=== PATIENT | male | born 1995 | race Caucasian/White ===

== ENCOUNTER 2023-12-15 14:48 | Outpatient (REF) | payer MEDICAID, SELFPAY ==
[2023-12-15 19:26] LABS: VALPROIC ACID 144.7 ug/mL
[2023-12-15 19:30] LABS: ALT 55 U/L (16-63); AST 22 U/L (15-37); Alkaline Phosphatase 52 U/L (46-116); Anion Gap 10.3 mmol/L (3-11); BUN 10 mg/dL (7-18); Bilirubin, Total 0.3 mg/dL (0.2-1.0); CO2 26.7 mmol/L (21.0-32.0); CREATININE 0.8 mg/dL (0.70-1.30); Calcium 9.4 mg/dL (8.5-10.1); Chloride 98 mmol/L (98-107); Glucose 91 mg/dL (74-106); Potassium 4.3 mmol/L (3.5-5.1); Sodium 135 mmol/L (136-145); TSH (W/Ref FT4) 1.01 uIU/mL (0.36-3.74); Total Protein 7.4 g/dL (6.4-8.2)
[2023-12-15 19:44] LABS: Vitamin D 25 Total 21.4 ng/mL (30-100)
== END 2023-12-15 14:49 | disposition home or self-care (01) ==
LOC: NCHCN 14:48
PROVIDERS: Visit Provider Nurse Practitioner Family
DX: F32.9 Major depressive disorder, single episode, unspecified (principal); E13.9 Other specified diabetes mellitus without complications; E55.9 Vitamin D deficiency, unspecified; E03.9 Hypothyroidism, unspecified
CPT/HCPCS: 80053; 82306; 80164; 84443

== ENCOUNTER 2024-02-18 21:55 | Emergency (ER) | payer MEDICAID, SELFPAY ==
[2024-02-18] VITALS (22 sets, daily range): BP systolic 120–144; BP diastolic 59–90; PULSE 80–111; RESP 11–22; TEMP 36.3; O2SAT 91–99
--- NOTE | 2024-02-18 22:00 | RT.EKG_ITS ---
APPROVED REPORT Exam: Resting ECG Reason for Exam: Patient Location: E HR:87 bpm ECG Measurements Heart Rate [address] 141 P 61 QRSd 88 QRS -11 QT 373 T 43 QTc 442 Conclusion Sinus rhythm...normal P axis, V-rate 60- 99 Atrial premature complexes...SV complexes w/ short R-R intvls Physician: no stemi
--- NOTE | 2024-02-18 22:15 | DI.RAD_ITS ---
Exam(s) XR PORTABLE CHEST AP EXAM: XR PORTABLE CHEST AP CLINICAL HISTORY: central chest pain TECHNIQUE: 2D digital imaging was performed of the chest. One image was obtained. An AP view was ob tained. COMPARISON: No exams were available for comparison FINDINGS: MEDIASTINUM: Normal. HEART: Normal. PULMONARY VASCULATURE: Normal. LUNGS: Clear. PLEURAL SPACE: No pleural effusion or pneumothorax. BONE:Within normal limits for the patient's age. OTHER FINDINGS:Normal. IMPRESSION: No acute pulmonary findings. DATA REPOSITORY: RADIATION DOSE DELIVERED:
[2024-02-18 22:32] LABS: Abs Immature Grans 0.02 10^3/uL (0.0-0.06); Absolute Basophil Count 0.02 10^3/uL (0.0-0.2); Absolute Eosinophil Count 0.11 10^3/uL (0.0-0.7); Absolute Lymphocyte Count 2.25 10^3/uL (1.2-3.4); Absolute Monocyte Count 0.49 10^3/uL (0.1-0.8); Basophils % 0.4 %; Eosinophils % 2.2 %; HCT 40.1 % (40.0-50.0); HGB 13.7 g/dL (13.5-17.5); Immature Grans % 0.4 %; Lymphocytes % 44.2 %; MCHC 34.2 % (32.0-36.0); MCV 88 fL (80-95); MPV 9.2 fL (8.0-11.0); Monocytes % 9.6 %; Neutrophils % 43.2 %; Platelet Count 201 10^3/uL (130-400); RBC 4.57 10^6/uL (4.36-5.78); RDW 12.1 % (11.8-14.1); RDW-SD 38.7 fL; WBC 5.09 10^3/uL (4.4-10.8)
[2024-02-18] MEDS: Acetaminophen 500 MG TAB PO (22:43)
[2024-02-18] MEDS: Ketorolac 15 MG/ML VIAL IVP (22:44)
--- NOTE | 2024-02-18 22:49 | W.ED.GENAD ---
Discharge Plan Disposition Patient Disposition: Home Condition: Good Discharge Details Clinical Impression: Chest discomfort Primary Care Provider: Magda To ED Provider: Wan Simeon Home Meds and New Rx's Prescriptions: No Action acetaminophen 500 mg tablet 500 mg PO Q6H PRN diphenhydramine HCl [Benadryl] 25 mg capsule 25 mg PO TID PRN bisacodyl 10 mg suppository 10 mg DE DAILY PRN Allergy Relief (cetirizine) 10 mg capsule 10 mg PO DAILY PRN folic acid 1 mg tablet 1 mg PO DAILY ketoconazole 2 % cream 1 applic topical DAILY levothyroxine 112 mcg capsule 112 mcg PO DAILY metformin 500 mg tablet 500 mg PO BID magnesium hydroxide [Milk of Magnesia] 400 mg/5 mL suspension 30 ml PO DAILY PRN risperidone [Risperdal] 2 mg tablet 2 mg PO BID risperidone [Risperdal] 3 mg tablet 3 mg PO BID acetaminophen [Tylenol Extra Strength] 500 mg tablet 500 mg PO Q6H PRN cholecalciferol (vitamin D3) 25 mcg (1,000 unit) capsule 25 mcg PO DAILY olanzapine [Zyprexa] 10 mg tablet 30 mg PO QHS Rx Instructions: take three (3) tablets at bedtime orally divalproex 500 mg tablet,delayed release (DR/EC) 1,000 mg PO BID prazosin 1 mg capsule 1 mg PO QHS Taltz Autoinjector 80 mg/mL auto-injector 80 mg subcut Q4W cholecalciferol (vitamin D3) 10 mcg (400 unit) capsule 50,000 unit PO MONTHLY ketoconazole 2 % cream 1 applic topical DAILY Qty: 120 6RF Rx Instructions: Apply to toenails once daily Discharge Instructions Instructions: Chest Pain, Adult ED Additional Instructions: At this time your workup shows no evidence of Pap lung, pneumonia, tumor, mass, blood clot or heart attack. There may be a muscle spasm that could be causing your pain or mild reflux. Please cut down on smoking, avoid spicy foods, and take Tylenol and Motrin as needed for pain. If you notice any worsening of your symptoms, or any new symptoms such as vomiting, diarrhea, fever, chills, shortness of breath, chest pain, numbness, weakness, or fainting , please return immediately to the emergency department for reevaluation. Please follow up with your primary care provider as soon as possible for reassessment and reevaluation. As always, it was a pleasure participating in your medical care today. Referrals: Magda To [Primary Care Provider] - [facility] General Date/Time Provider Initiated Documentation: 02/18/24 22:00. 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 Patient states that at 1130 he had a headache that eventually went away at that time, and then as soon as that went away he developed a mild chest pain it is central chest which she describes as a twisting stabbing discomfort. There is a mild pleuritic component, no postural component. It is not changed by sitting up or laying down. He does smoke tobacco and vape. He denies any cocaine use. He denies any recent long trips surgeries or procedures. No history of cardiac disease. No trauma. No other complaints at this time. He denies any exertional component. Symptoms not relieved by rest. Symptoms occurred while he was resting. Related Data Home Medications ?Medication ?Instructions ?Recorded ?Confirmed acetaminophen 500 mg tablet 500 mg PO Q6H PRN 01/01/24 02/18/24 acetaminophen 500 mg tablet 500 mg PO Q6H PRN 01/01/24 02/18/24 (Tylenol Extra Strength) bisacodyl 10 mg rectal suppository 10 mg DE DAILY PRN 01/01/24 02/18/24 cetirizine 10 mg capsule (Allergy 10 mg PO DAILY PRN 01/01/24 02/18/24 Relief (cetirizine)) cholecalciferol (vitamin D3) 25 25 mcg PO DAILY 01/01/24 02/18/24 mcg (1,000 unit) capsule diphenhydramine HCl 25 mg capsule 25 mg PO TID PRN 01/01/24 02/18/24 (Benadryl) folic acid 1 mg tablet 1 mg PO DAILY 01/01/24 02/18/24 ketoconazole 2 % topical cream 1 applic topical DAILY 01/01/24 02/03/24 levothyroxine 112 mcg capsule 112 mcg PO DAILY 01/01/24 02/18/24 magnesium hydroxide 400 mg/5 mL 30 ml PO DAILY PRN 01/01/24 02/18/24 oral suspension (Milk of Magnesia) metformin 500 mg tablet 500 mg PO BID 01/01/24 02/18/24 risperidone 2 mg tablet (Risperdal) 2 mg PO BID 01/01/24 02/18/24 risperidone 3 mg tablet (Risperdal) 3 mg PO BID 01/01/24 02/18/24 cholecalciferol (vitamin D3) 10 50,000 unit PO MONTHLY 02/03/24 02/18/24 mcg (400 unit) capsule divalproex 500 mg tablet,delayed 1,000 mg PO BID 02/03/24 02/18/24 release ixekizumab 80 mg/mL subcutaneous 80 mg subcut Q4W 02/03/24 02/18/24 auto-injector ([employer]tz Autoinjector) ketoconazole 2 % topical cream 1 applic topical DAILY #120 grams 02/03/24 02/18/24 olanzapine 10 mg tablet (Zyprexa) 30 mg PO QHS 02/03/24 02/18/24 prazosin 1 mg capsule 1 mg PO QHS 02/03/24 02/18/24 Previous Rx's ?Medication ?Instructions ?Recorded ketoconazole 2 % topical cream 1 applic topical DAILY #120 grams 02/03/24 Allergies Allergy/AdvReac Type Severity Reaction Status Date / Time adhesive tape Allergy Unknown Unknown Verified 02/03/24 10:31 amoxicillin (From Augmentin) Allergy Unknown Unknown Verified 02/03/24 10:31 clavulanic acid (From Allergy Unknown Unknown Verified 02/03/24 10:31 Augmentin) hydrocodone Allergy Unknown Unknown Verified 02/03/24 10:31 Sulfa (Sulfonamide Allergy Unknown Unknown Verified 02/03/24 10:31 Antibiotics) General Stated Complaint: Chest Pain LYDIA: 3 Review of Systems All systems reviewed & are unremarkable except as noted in HPI and below Exam Narrative Exam Narrative: 1.Const: Well-nourished, Well-developed, appearing stated age 2.Eyes: PERRL, no conjunctival injection, and symmetrical lids. 3.ENT: Atraumatic external nose and ears. Moist MM. Neck: Symmetric, trachea midline, No thyromegaly. 4.CVS: +S1/S2, No murmurs or gallops. Peripheral pulses 2+ and equal in all extremities. Brisk capillary refill in all extremities. 5.RESP: Unlabored respiratory effort. Clear to auscultation bilaterally. No wheezes rales or rhonchi 6.GI: Soft, Nontender/Nondistended, No hepatosplenomegaly. No guarding or rebound. 7.MSK: Normocephalic/Atraumatic, Extremities w/o deformity or ttp No cyanosis or clubbing, Normal movement of all extremities 8.Skin: Warm, Dry. No rashes or lesions. 9.Neuro: behavioral modification assistant II-XII grossly intact. Sensation grossly intact, no focal neurologic deficits. 10.Psych: (AAO) x3. Appropriate mood and affect Course Vital Signs Vital signs: Vital Signs Temperature 36.3 C L 02/18/24 21:58 Pulse 111 H 02/18/24 21:58 Respiratory Rate 18 02/18/24 21:58 Pulse Oximetry 95 02/18/24 21:58 Temperature 36.3 C L 02/18/24 21:58 Temperature Source Skin 02/18/24 21:58 Pulse 111 H 02/18/24 21:58 Respiratory Rate 18 02/18/24 22:02 Respiratory Effort Normal 02/18/24 22:02 Respiratory Depth Normal 02/18/24 22:02 Respiratory Pattern Normal 02/18/24 22:02 Blood Pressure Position Sitting 02/18/24 21:58 Pulse Oximetry 95 02/18/24 21:58 Oxygen Delivery Method Room Air 02/18/24 21:58 Oxygen Flow Rate 0 02/18/24 21:58 Lab/Test Results Lab/Test Results: Laboratory Tests Range/Units 02/18/24 22:18 WBC (4.4-10.8) 10^3/uL 5.09 RBC (4.36-5.78) 10^6/uL 4.57 Hgb (13.5-17.5) g/dL 13.7 Hct (40.0-50.0) % 40.1 MCV (80-95) fL 88 MCH (27.0-33.0) pg 30.0 MCHC (32.0-36.0) % 34.2 RDW (11.8-14.1) % 12.1 Plt Count (130-400) 10^3/uL 201 MPV (8.0-11.0) fL 9.2 Immature Gran % % 0.4 Neutrophils % % 43.2 Lymphocytes % % 44.2 Monocytes % % 9.6 Eosinophils % % 2.2 Basophils % % 0.4 Nucleated RBC % (0.0-0.3) % 0.0 Absolute Neutrophils (1.2-6.7) 10^3/uL 2.20 Absolute Lymphocytes (1.2-3.4) 10^3/uL 2.25 Absolute Monocytes (0.1-0.8) 10^3/uL 0.49 Absolute Eosinophils (0.0-0.7) 10^3/uL 0.11 Absolute Basophils (0.0-0.2) 10^3/uL 0.02 Medical Decision Making This is a very pleasant 28-year-old male with a past medical history of chronic suicidal behavior for which she is regularly watched on every 5 to 15-minute intervals at his group home, who also has a 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 Patient states that at 1130 he had a headache that eventually went away at that time, and then as soon as that went away he developed a mild chest pain it is central chest which she describes as a twisting stabbing discomfort. There is a mild pleuritic component, no postural component. It is not changed by sitting up or laying down. He does smoke tobacco and vape. He denies any cocaine use. He denies any recent long trips surgeries or procedures. No history of cardiac disease. No trauma. No other complaints at this time. He denies any exertional component. Symptoms not relieved by rest. Symptoms occurred while he was resting. Exam demonstrates well-appearing male, no reproducible chest wall tenderness, no signs of trauma. No calf tenderness, radial pulses equal bilaterally. Differential is concerning for reflux, musculoskeletal etiology, and much less likely cardiac etiology. EKG benign. No signs of STEMI. He is low risk on the heart score. Will monitor closely evaluate for concerning etiologies and reassess. We will order a D-dimer out of low likelihood concern for PE. 1:11 AM Patient remains notably hemodynamically stable. Laboratory workup demonstrates normal white count, normal D-dimer, normal initial and repeat troponin, normal electrolytes, normal renal function, lipase normal. Chest x-ray negative for acute process. Symptoms inconsistent with PE, dissection, ACS, pneumothorax, pneumonia, tumor or mass. Symptoms inconsistent with Boerhaave's or Magali-Still tear. No other abnormalities on exam to suggest acute life-threatening etiology. Symptoms are likely secondary to mild musculoskeletal strain, or potential nonemergent etiology. Patient stable for discharge. No other concerning red flags based on current clinical assessment. Patient will be discharged home with his care provider who is at bedside at all times. Discussed red flags for which to return. I have extensively reviewed the treatment plan and discharge instructions with the patient. I have addressed all patient concerns at this time. The patient was made aware of what symptoms to monitor for that would warrant a return to the emergency department. Discussed the plan with the patient, they demonstrate verbal understanding and agreement with our assessment and plan at this time. The documentation in this chart was dictated using [employer] dictation software. Please excuse any dictation errors. FINDINGS: Lungs: No consolidation. Pleural spaces: No pleural effusion. No pneumothorax. Heart/Mediastinum: No cardiomegaly. Bones/joints: No acute fracture. IMPRESSION: Negative portable chest. Thank you for allowing us to participate in the care of your patient. 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 (Acute) Multiple joint pain (Acute) Skin tag (Acute) Plaque psoriasis (Acute) Atopic dermatitis (Acute) Migraine (Chronic) Insomnia (Acute) Adjustment disorder with mixed anxiety and depressed mood (Acute) Nicotine dependence (Acute) Major depression, single episode (Acute) Vitamin D deficiency (Acute) Diabetes mellitus (Chronic) Hypothyroidism (Chronic) Onychomycosis (Acute) Medical History TBI (traumatic brain injury) Unexplained weight loss Social History Smoking/Tobacco Use Status: Current every day Tobacco Type: cigarettes Smoking risk assessment performed?: Yes Alcohol Intake: never Drug use: Never
[2024-02-18 22:51] LABS: INR 1.1 (0.9-1.1); PTT Activated 28.2 sec (23.6-32.8); Prothrombin Time 10.9 sec (9.1-11.1)
[2024-02-18] MEDS: Nicotine 2 MG LOZG SUC (22:55)
[2024-02-18 22:57] LABS: ALT 33 U/L (16-63); AST 14 U/L (15-37); Albumin 3.7 g/dL (3.4-5.0); Alkaline Phosphatase 54 U/L (46-116); Anion Gap 8.8 mmol/L (3-11); BUN 10 mg/dL (7-18); Bilirubin, Total 0.37 mg/dL (0.2-1.0); CO2 27.2 mmol/L (21.0-32.0); CREATININE 0.7 mg/dL (0.70-1.30); Calcium 9.1 mg/dL (8.5-10.1); Chloride 97 mmol/L (98-107); Estimated GFR 127.12 (mL/min/1.73m2); Glucose 99 mg/dL (74-106); Lipase 57 U/L (16-77); Potassium 3.8 mmol/L (3.5-5.1); Sodium 133 mmol/L (136-145); Total Protein 7.1 g/dL (6.4-8.2); Troponin I < 50 ng/L (< or =60)
[2024-02-18 23:04] LABS: D-Dimer 325 ng/mlFEU (<500)
--- NOTE | 2024-02-18 23:21 | DI.VRAD_ITS ---
PROCEDURE INFORMATION: Exam: XR Chest Exam date and time: 02/18/2024 22:32 Age: 28 years old Clinical indication: Sternal or substernal pain; Additional info: Central chest pain TECHNIQUE: Imaging protocol: Radiologic exam of the chest. Views: 1 view. COMPARISON: No relevant prior studies available. FINDINGS: Lungs: No consolidation. Pleural spaces: No pleural effusion. No pneumothorax. Heart/Mediastinum: No cardiomegaly. Bones/joints: No acute fracture. IMPRESSION: Negative portable chest. Dictated and Authenticated by: Donna Schaefer MD. Ordering:JOSE CAROLS Blas MD
[2024-02-19] VITALS (10 sets, daily range): BP systolic 102–132; BP diastolic 66–88; PULSE 75–91; RESP 10–17; O2SAT 94–97
[2024-02-19 00:58] LABS: Troponin I < 50 ng/L (< or =60)
[2024-02-19] MEDS: Lidocaine 5% Patch 1 PATCH TP (01:13)
== END 2024-02-19 01:13 | disposition home or self-care (01) ==
PROVIDERS: Emergency Provider Student in an Organized Health Care Education/Training Program; PCP Nurse Practitioner Family
DX: R07.89 Other chest pain (principal); F17.200 Nicotine dependence, unspecified, uncomplicated
CPT/HCPCS: 80053; 83690; 93005; 96374; 99284; 71045; 84484; 85025; 85379; 85610; 85730; 93010; 99283; J1885

== ENCOUNTER 2024-10-22 23:58 | Emergency (ER) | payer MEDICAID, SELFPAY ==
[2024-10-23] VITALS: BP 132/89; PULSE 101; RESP 18; TEMP 36; O2SAT 99
--- NOTE | 2024-10-23 00:23 | W.ED.GENAD ---
Discharge Plan Disposition Patient Disposition: Home Condition: Good Discharge Details Clinical Impression: Suicidal ideation, Homicidal ideation Primary Care Provider: Magda To ED Provider: Jennifer Sheehan Home Meds and New Rx's Prescriptions: Continued diphenhydramine HCl [Benadryl] 25 mg capsule 25 mg PO TID PRN bisacodyl 10 mg suppository [address] DAILY PRN Allergy Relief (cetirizine) 10 mg capsule 10 mg PO DAILY PRN folic acid 1 mg tablet 1 mg PO DAILY levothyroxine 112 mcg capsule 112 mcg PO DAILY metformin 500 mg tablet 500 mg PO BID magnesium hydroxide [Milk of Magnesia] 400 mg/5 mL suspension 30 ml PO DAILY PRN risperidone [Risperdal] 2 mg tablet 2 mg PO BID risperidone [Risperdal] 3 mg tablet 3 mg PO BID acetaminophen [Tylenol Extra Strength] 500 mg tablet 500 mg PO Q6H PRN cholecalciferol (vitamin D3) 25 mcg (1,000 unit) capsule 25 mcg PO DAILY Taltz Autoinjector 80 mg/mL auto-injector 80 mg subcut Q4W ketoconazole 2 % cream 1 applic topical DAILY Qty: 120 6RF Rx Instructions: Apply to toenails once daily divalproex 500 mg tablet,delayed release (DR/EC) 1,500 mg PO HS cholecalciferol (vitamin D3) 10 mcg (400 unit) capsule 1,000 unit PO MONTHLY clonazepam [Klonopin] 1 mg tablet 1 mg PO DAILY PRN cbd drops 0.5 ml PO DAILY fleets enema [address] PRN Rx Instructions: 1 rectally; calcium carbonate [Antacid (calcium carbonate)] 200 mg calcium (500 mg) tablet,chewable 400 mg PO Q4H PRN Discharge Instructions Instructions: Suicide Prevention, Depression, Adult ED Additional Instructions: Follow up with your primary care doctor within the next 72 hours on your visit here. Return to the emergency department for new or worsening symptoms. HPI General Mode of arrival: EMS. Date/Time Provider Initiated Documentation: 10/23/24 00:13. Limitations to Documentation: no limitations. Information obtained by: patient and EMS. HPI Narrative: 28yo M with hx depression, anxiety, developmental delay, presenting via EMS for SI and HI. Reports that he is feeling like he wants to kill himself and also to kill other people. Denies any specific targets. Denies any plan for suicide Haven't decided or homicide I don't know. Thinks he may have tried to kill himself years ago but does not remember what method he used. Denies any specific provoking factors or recent stressors. Denies any physical complaints. Otherwise in his usual state of health. Related Data Home Medications ?Medication ?Instructions ?Recorded ?Confirmed acetaminophen 500 mg tablet 500 mg PO Q6H PRN 01/01/24 10/22/24 (Tylenol Extra Strength) bisacodyl 10 mg rectal suppository [address] DAILY PRN 01/01/24 10/22/24 cetirizine 10 mg capsule (Allergy 10 mg PO DAILY PRN 01/01/24 10/23/24 Relief (cetirizine)) cholecalciferol (vitamin D3) 25 25 mcg PO DAILY 01/01/24 10/23/24 mcg (1,000 unit) capsule diphenhydramine HCl 25 mg capsule 25 mg PO TID PRN 01/01/24 10/23/24 (Benadryl) folic acid 1 mg tablet 1 mg PO DAILY 01/01/24 10/23/24 levothyroxine 112 mcg capsule 112 mcg PO DAILY 01/01/24 10/23/24 magnesium hydroxide 400 mg/5 mL 30 ml PO DAILY PRN 01/01/24 10/23/24 oral suspension (Milk of Magnesia) metformin 500 mg tablet 500 mg PO BID 01/01/24 10/23/24 risperidone 2 mg tablet (Risperdal) 2 mg PO BID 01/01/24 10/23/24 risperidone 3 mg tablet (Risperdal) 3 mg PO BID 01/01/24 10/23/24 ixekizumab 80 mg/mL subcutaneous 80 mg subcut Q4W 02/03/24 10/23/24 auto-injector ([employer] Autoinjector) ketoconazole 2 % topical cream 1 applic topical DAILY #120 grams 02/03/24 10/23/24 calcium carbonate (Antacid 400 mg PO Q4H PRN 08/03/24 10/22/24 (calcium carbonate)) cbd drops 0.5 ml PO DAILY 08/03/24 10/23/24 cholecalciferol (vitamin D3) 10 1,000 unit PO MONTHLY 08/03/24 10/23/24 mcg (400 unit) capsule clonazepam 1 mg tablet (Klonopin) 1 mg PO DAILY PRN 08/03/24 10/23/24 divalproex 500 mg tablet,delayed 1,500 mg PO HS 08/03/24 10/23/24 release fleets enema [address] PRN 08/03/24 10/23/24 Previous Rx's ?Medication ?Instructions ?Recorded ketoconazole 2 % topical cream 1 applic topical DAILY #120 grams 02/03/24 Allergies Allergy/AdvReac Type Severity Reaction Status Date / Time milk Allergy Intermediate Diarrhea Verified 10/22/24 23:59 adhesive tape Allergy Unknown Unknown Verified 10/22/24 23:59 amoxicillin (From Augmentin) Allergy Unknown Unknown Verified 10/22/24 23:59 clavulanic acid (From Allergy Unknown Unknown Verified 10/22/24 23:59 Augmentin) hydrocodone Allergy Unknown Unknown Verified 10/22/24 23:59 Sulfa (Sulfonamide Allergy Unknown Unknown Verified 10/22/24 23:59 Antibiotics) General Stated Complaint: PsychEval LYDIA: 2 Review of Systems Narrative: see HPI Exam Narrative Exam Narrative: General: Alert, well appearing, well nourished, in no acute distress. Head: Normocephalic, atraumatic Neck: Trachea midline, ?Neck supple. Cardiac: ?RRR, no murmurs appreciated Resp: No respiratory distress. CTAB. Abd: ?Non-distended Extremities: ?No deformities.? Neurologic: GCS 15. ? Moves all extremities freely against gravity Psych: Calm, cooperative.? Well groomed.? Mood bad, affect flat.? Speech with normal volume, rate, rythym and tone. Linear and goal directed.? +SI & +HI, denies any plans or attempts. Does not appear to be responding to internal stimuli. No psychomotor agitation. Course Vital Signs Vital signs: Vital Signs Temperature 36.0 C L 10/23/24 00:00 Pulse 101 H 10/23/24 00:00 Respiratory Rate 18 10/23/24 00:00 Blood Pressure 132/89 10/23/24 00:00 Pulse Oximetry 99 10/23/24 00:00 Temperature 36.0 C L 10/23/24 00:00 Temperature Source Temporal Artery Scan 10/23/24 00:00 Pulse 101 H 10/23/24 00:00 Respiratory Rate 18 10/23/24 00:00 Blood Pressure 132/89 10/23/24 00:00 Blood Pressure Position Sitting 10/23/24 00:00 Pulse Oximetry 99 10/23/24 00:00 Oxygen Delivery Method Room Air 10/23/24 00:00 Oxygen Flow Rate 0 10/23/24 00:00 Pain Level 0 10/23/24 00:00 Medical Decision Making 28yo M with hx depression, anxiety, developmental delay, presenting via EMS for SI and HI without plans. Vital signs reassuring on arrival. Medically cleared via SMART tool. He lives in a nursing home and is closely supervised, has no specific plan or intent for either suicide or homicide and no identified target for homicide. At low risk for self harm or harm to others. Well known to [facility] who was contacted and evaluated patient (see their note for details); feel he is at his baseline and not at imminent risk for harm to self or others. No indication for inpatient treatment at this time. Discharged home in company of caregiver; discharge instructions and return precautions were reviewed with patient and caregiver at bedside who verbalized understanding. All questions were answered. 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) Multiple joint pain (Acute) Skin tag (Acute) Plaque psoriasis (Acute) Atopic dermatitis (Acute) Migraine (Chronic) Insomnia (Acute) Adjustment disorder with mixed anxiety and depressed mood (Acute) Nicotine dependence (Acute) Major depression, single episode (Acute) Vitamin D deficiency (Acute) Diabetes mellitus (Chronic) Hypothyroidism (Chronic) Onychomycosis (Acute) Medical History TBI (traumatic brain injury) Unexplained weight loss Social History Smoking/Tobacco Use Status: Current every day Tobacco Type: cigarettes Smoking risk assessment performed?: Yes Alcohol Intake: never Drug use: Never Substance use type: does not use Housing: apartment
[2024-10-23] MEDS: Nicotine 2 MG LOZG SUC (00:42)
--- NOTE | 2024-10-23 02:33 | PDOC.MHCN_ITS ---
Date of service: 10/23/24 Time of Service: 00:55 Suicide Severity Rate CSSRS Have you wished you were or wished you could go to sleep and not wake up?: Yes Have you actually had any thoughts of killing yourself?: Yes CSSRS2 Have you been thinking about how you might do this?: No Have you had these thoughts and had some intention of acting on them?: Yes Have you started to work out or worked out the details of how to kill yourself? Do you intend to carry out this plan?: No CSSRS3 Have you ever done anything, started to do anything or prepared to do anything to end your life?: Yes CSSRS4 Was this within the past three months?: Yes Screening Score Total Score: 8 Screening: Positive Mental Health Emergency Note Release [facility] release signed:: No Reason for Visit SI and HI In the last 2 weeks has the pt presented for ES prior to today?: No Non Suicidal Self Injury Current: No History: yes, Client unavailable Safety Risk/Harm to Self or Others Current Ideation to Harm Self or Others: Yes to self. Intent: yes, has intent. Plan: no.does not have a plan. Risk: Does risk to harm exist?: No Risk: Low Risk Duty to warn indicated: No Asssessment/Mental Status Appearance: Disheveled Attitude: Friendly and Other (Uncooperative) Behavior: Agitated Speech: Normal Affect: Cogruent with mood Mood: Irritable Thought process: Circumstational and Poverty of content Hallucinations: yes, Visual and Auditory Delusions: No Attention: Unremarkable Perception: Not impaired Orientation: Fully orientated Memory: Intact Insight: Poor Judgement: Poor Neurovegetative Symptoms Sleep: Decrease Appetitie: Decrease Interests: Decrease Energy: Decrease Libido: Not applicable Substance Use: Other (No) Drug Issues: Other (No) Do you use nicotine?: Yes Have you used substances in the last 7 days?: No Additional Issues: Assaultive/Threatening Behavior: No Medical Concerns: No Client engaged in active self harm w/weapon: No Threatening to run away: No Child reported abuse/neglect: No Voluntarily presenting for services: Yes Domestic violence is a concern: No Extreme Psychosis or extreme behavior is present: No Impression The client is a 28 year old biological male who resides at [facility] in [place]. The client presents in blue paper scrubs in his hospital bed displaying poor hygiene. Affect is appears to be congruent with mood. Speech is in normal range. Client is uncooperative; they report their mood as up and down. Thought process appears to be circumstantial with a poverty of content. There are no delusions observed. The client reports having visual and auditory hallucinations. The client states he hears voices in his head and sees the same group of people daily. When asked for further details on the group of people the client is seeing the client states one is trying to kill himself, one is trying to kill another, one is trying to find work, one is trying not to beat the other people and there are many more. Client shows poor insight as they are seeking impatient treatment as they do not like where they are residing. Cognitive assessment reveals orientation to person, place and time. The client reports SI and HI bringing him into [facility] via ambulance. The client reports feeling suicidal everyday but it is worse on the days he focuses on it. The client denied having a plan but when asked on a scale from zero to ten, with zero being I won't do anything to end my life and ten being I will do anything possible to end my life by suicide where they would rate themselves. The client rated himself at a 10 out of 10. The client reports HI with no intent and plan to this clinician. The client denies NSSI, but states he has engaged in NSSI in the past and does not remember how long ago. The client denied to engage in the screening tool questions with this filing writer but did complete the CSSRS and scored a 4/6. The client has no access to means and is staffed 17/02 at [facility]. The client denied to want to complete a safety plan with this filing writer, and was discharged from [facility]. Plan/Disposition Recommended Disposition: Other (No recommended disposition at this time.). Plan: Client refused to engage in safety plan with this clinician and was discharged home. Reports/communication Outcome discussed with: ED/Personnel
== END 2024-10-23 01:37 | disposition home or self-care (01) ==
PROVIDERS: Emergency Provider Student in an Organized Health Care Education/Training Program; PCP Nurse Practitioner Family
DX: R45.850 Homicidal ideations (principal); R45.851 Suicidal ideations; F32.A Depression, unspecified; F41.9 Anxiety disorder, unspecified
CPT/HCPCS: 00123; 99285; 99284

== ENCOUNTER 2024-11-21 16:59 | Emergency (ER) | payer MEDICAID, SELFPAY ==
[2024-11-21 17:01] VITALS: BP 124/78; PULSE 100; RESP 18; TEMP 36.6; O2SAT 98
--- NOTE | 2024-11-21 17:30 | RT.EKG_ITS ---
APPROVED REPORT Exam: Resting ECG Reason for Exam: chest pain Patient Location: E HR:88 bpm ECG Measurements Heart Rate 88 AXIS ND 120 P 50 QRSd 85 QRS -12 QT 372 T 30 QTc 454 Conclusion Sinus rhythm 88 normal axis PAC no stemi
[2024-11-21 18:37] LABS: Abs Immature Grans 0.01 10^3/uL (0.0-0.06); Absolute Basophil Count 0.02 10^3/uL (0.0-0.2); Absolute Eosinophil Count 0.06 10^3/uL (0.0-0.7); Absolute Lymphocyte Count 1.64 10^3/uL (1.2-3.4); Absolute Monocyte Count 0.44 10^3/uL (0.1-0.8); Absolute Neutrophil Count 2.61 10^3/uL (1.2-6.7); Basophils % 0.4 %; Eosinophils % 1.3 %; HCT 45.8 % (40.0-50.0); HGB 15.3 g/dL (13.5-17.5); Immature Grans % 0.2 %; Lymphocytes % 34.3 %; MCH 30.8 pg (27.0-33.0); MCHC 33.4 % (32.0-36.0); MCV 92 fL (80-95); MPV 9.5 fL (8.0-11.0); Monocytes % 9.2 %; Neutrophils % 54.6 %; Platelet Count 209 10^3/uL (130-400); RBC 4.97 10^6/uL (4.36-5.78); RDW 12.5 % (11.8-14.1); RDW-SD 42.1 fL; WBC 4.78 10^3/uL (4.4-10.8)
[2024-11-21 18:46] LABS: ALT 33 U/L (16-63); AST 12 U/L (15-37); Albumin 4.2 g/dL (3.4-5.0); Alkaline Phosphatase 71 U/L (46-116); Anion Gap 9.6 mmol/L (3-11); BUN 13 mg/dL (7-18); Bilirubin, Total 0.3 mg/dL (0.2-1.0); CO2 29.4 mmol/L (21.0-32.0); CREATININE 0.8 mg/dL (0.70-1.30); Calcium 10.5 mg/dL (8.5-10.1); Chloride 102 mmol/L (98-107); Estimated GFR 121.34 (mL/min/1.73m2); Glucose 116 mg/dL (74-106); Potassium 4.2 mmol/L (3.5-5.1); Sodium 141 mmol/L (136-145); Total Protein 8.2 g/dL (6.4-8.2)
--- NOTE | 2024-11-21 18:58 | ED.GENADUL_ITS ---
Discharge Plan Disposition Patient Disposition: Home Condition: Stable Discharge Details Clinical Impression: Suicidal ideation Primary Care Provider: Magda To ED Provider: Chance Garcia Home Meds and New Rx's Prescriptions: No Action diphenhydramine HCl [Benadryl] 25 mg capsule 25 mg PO TID PRN bisacodyl 10 mg suppository 10 mg OH DAILY PRN Allergy Relief (cetirizine) 10 mg capsule 10 mg PO DAILY PRN folic acid 1 mg tablet 1 mg PO DAILY levothyroxine 112 mcg capsule 112 mcg PO DAILY metformin 500 mg tablet 500 mg PO BID magnesium hydroxide [Milk of Magnesia] 400 mg/5 mL suspension 30 ml PO DAILY PRN risperidone [Risperdal] 2 mg tablet 2 mg PO BID risperidone [Risperdal] 3 mg tablet 3 mg PO BID acetaminophen [Tylenol Extra Strength] 500 mg tablet 500 mg PO Q6H PRN cholecalciferol (vitamin D3) 25 mcg (1,000 unit) capsule 25 mcg PO DAILY Taltz Autoinjector 80 mg/mL auto-injector 80 mg subcut Q4W divalproex 500 mg tablet,delayed release (DR/EC) 1,500 mg PO HS cholecalciferol (vitamin D3) 10 mcg (400 unit) capsule 1,000 unit PO MONTHLY clonazepam [Klonopin] 1 mg tablet 1 mg PO DAILY PRN cbd drops 0.5 ml PO DAILY fleets enema 1 dose OH PRN Rx Instructions: 1 rectally; calcium carbonate [Antacid (calcium carbonate)] 200 mg calcium (500 mg) tablet,chewable 400 mg PO Q4H PRN Discharge Instructions Additional Instructions: please continue your home treatment and follow up with your primary team. HPI General Date/Time Provider Initiated Documentation: 11/21/24 17:00 . Limitations to Documentation: no limitations . Information obtained by: patient and family . HPI Narrative: 29-year-old gentleman with past medical history of chromosome micro deletion, adjustment disorder, depression, diabetes presents for evaluation of depressed mood. Patient presents with his life skills person from the place where he lives and works. She reports that yesterday he had some palpitations and chest pain and this caused him to have some anxiety. She states that since that time he has been feeling very down and he did not get them today. He states that he has been having suicidal thoughts, no plan and no attempt at self-harm. He does have prior attempts at self-harm and psychiatric hospitalization. Related Data Home Medications ?Medication ?Instructions ?Recorded ?Confirmed acetaminophen 500 mg tablet 500 mg PO Q6H PRN 01/01/24 11/21/24 (Tylenol Extra Strength) bisacodyl 10 mg rectal suppository 10 mg OH DAILY PRN 01/01/24 11/21/24 cetirizine 10 mg capsule (Allergy 10 mg PO DAILY PRN 01/01/24 11/21/24 Relief (cetirizine)) cholecalciferol (vitamin D3) 25 25 mcg PO DAILY 01/01/24 11/21/24 mcg (1,000 unit) capsule diphenhydramine HCl 25 mg capsule 25 mg PO TID PRN 01/01/24 11/21/24 (Benadryl) folic acid 1 mg tablet 1 mg PO DAILY 01/01/24 11/21/24 levothyroxine 112 mcg capsule 112 mcg PO DAILY 01/01/24 11/21/24 magnesium hydroxide 400 mg/5 mL 30 ml PO DAILY PRN 01/01/24 11/21/24 oral suspension (Milk of Magnesia) metformin 500 mg tablet 500 mg PO BID 01/01/24 11/21/24 risperidone 2 mg tablet (Risperdal) 2 mg PO BID 01/01/24 11/21/24 risperidone 3 mg tablet (Risperdal) 3 mg PO BID 01/01/24 11/21/24 ixekizumab 80 mg/mL subcutaneous 80 mg subcut Q4W 02/03/24 11/21/24 auto-injector (Taltz Autoinjector) calcium carbonate (Antacid 400 mg PO Q4H PRN 08/03/24 11/21/24 (calcium carbonate)) cbd drops 0.5 ml PO DAILY 08/03/24 11/21/24 cholecalciferol (vitamin D3) 10 1,000 unit PO MONTHLY 08/03/24 11/21/24 mcg (400 unit) capsule clonazepam 1 mg tablet (Klonopin) 1 mg PO DAILY PRN 08/03/24 11/21/24 divalproex 500 mg tablet,delayed 1,500 mg PO HS 08/03/24 11/21/24 release fleets enema 1 dose OH PRN 08/03/24 11/21/24 Allergies Allergy/AdvReac Type Severity Reaction Status Date / Time milk Allergy Intermediate Diarrhea Verified 11/21/24 17:06 adhesive tape Allergy Unknown Unknown Verified 11/21/24 17:06 amoxicillin (From Augmentin) Allergy Unknown Unknown Verified 11/21/24 17:06 clavulanic acid (From Allergy Unknown Unknown Verified 11/21/24 17:06 Augmentin) hydrocodone Allergy Unknown Unknown Verified 11/21/24 17:06 Sulfa (Sulfonamide Allergy Unknown Unknown Verified 11/21/24 17:06 Antibiotics) General Stated Complaint: PsychEval LYDIA: 2 Exam Narrative Exam Narrative: Review of Systems: All systems reviewed & are unremarkable except as noted in HPI and below Well-developed, no acute distress NCAT RRR Unlabored respiratory effort Appropriate mood and affect Course Vital Signs Vital signs: Vital Signs Temperature 36.6 C 11/21/24 17:01 Pulse 100 H 11/21/24 17:01 Respiratory Rate 18 11/21/24 17:01 Blood Pressure 124/78 11/21/24 17:01 Pulse Oximetry 98 11/21/24 17:01 Temperature 36.6 C 11/21/24 17:01 Temperature Source Tympanic 11/21/24 17:01 Pulse 100 H 11/21/24 17:01 Respiratory Rate 18 11/21/24 17:01 Blood Pressure 124/78 11/21/24 17:01 Pulse Oximetry 98 11/21/24 17:01 Oxygen Delivery Method Room Air 11/21/24 17:01 Oxygen Flow Rate 0 11/21/24 17:01 Pain Level 0 11/21/24 17:01 Lab/Test Results Lab/Test Results: Laboratory Tests Range/Units 11/21/24 18:23 WBC (4.4-10.8) 10^3/uL 4.78 RBC (4.36-5.78) 10^6/uL 4.97 Hgb (13.5-17.5) g/dL 15.3 Hct (40.0-50.0) % 45.8 MCV (80-95) fL 92 MCH (27.0-33.0) pg 30.8 MCHC (32.0-36.0) % 33.4 RDW (11.8-14.1) % 12.5 Plt Count (130-400) 10^3/uL 209 MPV (8.0-11.0) fL 9.5 Immature Gran % % 0.2 Neutrophils % % 54.6 Lymphocytes % % 34.3 Monocytes % % 9.2 Eosinophils % % 1.3 Basophils % % 0.4 Nucleated RBC % (0.0-0.3) % 0.0 Absolute Neutrophils (1.2-6.7) 10^3/uL 2.61 Absolute Lymphocytes (1.2-3.4) 10^3/uL 1.64 Absolute Monocytes (0.1-0.8) 10^3/uL 0.44 Absolute Eosinophils (0.0-0.7) 10^3/uL 0.06 Absolute Basophils (0.0-0.2) 10^3/uL 0.02 Sodium (136-145) mmol/L 141 Potassium (3.5-5.1) mmol/L 4.2 Chloride (98-107) mmol/L 102 Carbon Dioxide (21.0-32.0) mmol/L 29.4 Anion Gap (3-11) mmol/L 9.6 BUN (7-18) mg/dL 13 Creatinine (0.70-1.30) mg/dL 0.8 Est GFR (CKD-EPI 2020) (mL/min/1.73m2) 121.34 Glucose (74-106) mg/dL 116 H Calcium (8.5-10.1) mg/dL 10.5 H Total Bilirubin (0.2-1.0) mg/dL 0.3 AST (15-37) U/L 12 L ALT (16-63) U/L 33 Alkaline Phosphatase (46-116) U/L 71 Total Protein (6.4-8.2) g/dL 8.2 Albumin (3.4-5.0) g/dL 4.2 Medical Decision Making Emergent evaluation of suicidal ideation. Patient has history of mood disorder and hospitalization. Has not taken anything or done anything in an attempt of self-harm. Caregiver states that they just need to get his medicines changed and regulated. He reports an on episode of chest pain yesterday but this was brief and self-limited. EKG today independently interpreted: Sinus 88 PAC normal axis no STEMI. Will get blood work for medical clearance, initiate psychiatric monitoring and suicide precautions and patient will be evaluated by mental health services. Lab work unremarkable. Patient evaluated by mental health services, they are very familiar with this patient. Currently he lives in a facility in which she has 24-hour supervision, no access to means for self-harm. His caregiver who is still here feels comfortable taking him home at this point there is no indication for further hospitalization and patient is discharged. 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) Multiple joint pain (Acute) Skin tag (Acute) Plaque psoriasis (Acute) Atopic dermatitis (Acute) Migraine (Chronic) Insomnia (Acute) Adjustment disorder with mixed anxiety and depressed mood (Acute) Nicotine dependence (Acute) Major depression, single episode (Acute) Vitamin D deficiency (Acute) Diabetes mellitus (Chronic) Hypothyroidism (Chronic) Onychomycosis (Acute) Medical History TBI (traumatic brain injury) Unexplained weight loss Social History Smoking/Tobacco Use Status: Current every day Smoking risk assessment performed?: Yes Alcohol Intake: never Drug use: Never Substance use type: does not use Housing: apartment
[2024-11-21 19:07] LABS: VALPROIC ACID 67.2 ug/mL
[2024-11-21 19:13] LABS: *AMPHETAMINES SCREEN URINE Negative (Negative); *BARBITURATES SCREEN URINE Negative (Negative); *BENZODIAZEPINES SCREEN URINE Negative (Negative); Cannabinoids THC Negative (Negative); Cocaine Screen,Urine Negative (Negative); METHADONE URINE SCREEN Negative (Negative); OPIATES URINE SCREEN Negative (Negative)
[2024-11-21 19:17] LABS: Tricyclic Antidepressants Negative (Negative)
--- NOTE | 2024-11-21 22:34 | PDOC.MHCN ---
Date of service: 11/21/24 Time of Service: 20:35 PHQ-9 Over the last 2 weeks, how often have you been bothered by any of the following problems? 1. Little interest or pleasure in doing things: nearly every day 2. Feeling down, depressed, or hopeless: nearly every day 3. Trouble falling or staying asleep, or sleeping too much: more than half the days 4. Feeling tired or having little energy: nearly every day 5. Poor appetite or overeating: more than half the days 6. Feeling bad about yourself - or that you are a failure or have let yourself and your family down: nearly every day 7. Trouble concentrating on things, such as reading the newspaper or watching television: nearly every day 8. Moving or speaking so slowly that other people could have noticed? - Or the opposite - being so fidgety or restless that you have been moving around a lot more than usual: several days 9. Thoughts that you would be better off or of hurting yourself in some way: more than half the days Total score: 22 If you checked off any problems, how difficult have these problems made it for you to do your work, take care of things at home, or get along with other people?: extremely difficult Source: Developed by Drs. Triston Titus, Haydee Reyes, Junior Brooke and colleagues, with an educational ira from [employer]. Suicide Severity Rate CSSRS Have you wished you were or wished you could go to sleep and not wake up?: Yes Have you actually had any thoughts of killing yourself?: Yes CSSRS2 Have you been thinking about how you might do this?: Yes Have you had these thoughts and had some intention of acting on them?: Yes Have you started to work out or worked out the details of how to kill yourself? Do you intend to carry out this plan?: No CSSRS3 Have you ever done anything, started to do anything or prepared to do anything to end your life?: Yes CSSRS4 Was this within the past three months?: No Screening Score Total Score: 6 Screening: Positive Mental Health Emergency Note Release [facility] release signed:: Yes Reason for Visit Client presented to the [facility] with suicidal ideations. In the last 2 weeks has the pt presented for ES prior to today?: No Client Information Well Housed: Yes Non Suicidal Self Injury Current: No History: yes, The client reports engaging in NSSI in the past by cutting. Safety Risk/Harm to Self or Others Current Ideation to Harm Self or Others: Yes to self. Intent: yes, has intent. Plan: no.does not have a plan. History of suicide attempt: yes,history of suicide attempt reported. Details of previous suicide attempt: The client reports multiple attempts on life back in 2019. Risk: Does risk to harm exist?: No Risk: Low Risk Duty to warn indicated: No Asssessment/Mental Status Appearance: Unremarkable Attitude: Demanding Behavior: Agitated Speech: Normal Affect: Cogruent with mood Mood: Irritable and Other (bad) Thought process: Circumstational and Poverty of content Hallucinations: yes, (The client did not give details on hallucinations.) Visual and Auditory Delusions: No Attention: Unremarkable Perception: Not impaired Orientation: Fully orientated Memory: Intact Insight: Poor Judgement: Poor Neurovegetative Symptoms Sleep: Decrease Appetitie: Decrease Interests: Decrease Energy: Decrease Libido: Not applicable Substance Use: Do you use nicotine?: Yes Additional Issues: Assaultive/Threatening Behavior: No Medical Concerns: No Client engaged in active self harm w/weapon: No Threatening to run away: No Child reported abuse/neglect: No Voluntarily presenting for services: Yes Domestic violence is a concern: No Extreme Psychosis or extreme behavior is present: No Impression The client is a 29 year old single biological male who resides at [facility] in [place]. The client presents in blue paper scrubs in Zone [address] of [facility]. Affect is appears to be congruent with mood. Speech is in normal range. Client is uncooperative and demanding; they report their mood as bad. Thought process appears to be circumstantial with a poverty of content. There are no delusions observed. The client reports having visual and auditory hallucinations, but does not give details regarding the hallucinations. Cognitive assessment reveals orientation to person, place and time. The client reports presenting to the [facility] ED with slight suicidal ideation. The client denied having a plan but when asked on a scale from zero to ten, with zero being I won't do anything to end my life and ten being I will do anything possible to end my life by suicide where they would rate themselves. The client rated himself at a 10 out of 10. The client denies HI to this clinician. The client denies NSSI currently, but states he has engaged in NSSI in the past around [id number]. The client scored a 22/27 on the PHQ-9, and a 5/6 on the CSSRS. The client has no access to means and is staffed 17/02 at [facility]. The client denied to want to complete a safety plan with this appeals writer, and was discharged from [facility]. Plan/Disposition Recommended Disposition: Other (Discharged home with no follow up.). Plan: The client denied to want to complete a safety plan with this appeals writer, and was discharged from [facility] with no follow up actions. Reports/communication Outcome discussed with: ED/Personnel
== END 2024-11-21 21:23 | disposition home or self-care (01) ==
PROVIDERS: Emergency Provider Emergency Medicine; PCP Nurse Practitioner Family
DX: R45.851 Suicidal ideations (principal); F43.23 Adjustment disorder with mixed anxiety and depressed mood
CPT/HCPCS: 99284 ×2; 00123; 80053; 80307; 93005; 96127; 80164; 85025; 93010

== ENCOUNTER 2025-02-03 23:35 | Emergency (ER) | payer MEDICAID, SELFPAY ==
[2025-02-03 23:14] VITALS: BP 118/88; PULSE 89; RESP 18; TEMP 36.7; O2SAT 98
--- NOTE | 2025-02-03 23:22 | W.ED.GENAD ---
Discharge Plan Disposition Patient Disposition: Home Condition: Good Discharge Details Clinical Impression: Mental health problem, Suicidal thoughts Primary Care Provider: Magda To ED Provider: Triston Delacruz Meds and New Rx's Prescriptions: Continued diphenhydramine HCl [Benadryl] 25 mg capsule 25 mg PO TID PRN bisacodyl 10 mg suppository 10 mg OH DAILY PRN Allergy Relief (cetirizine) 10 mg capsule 10 mg PO DAILY PRN folic acid 1 mg tablet 1 mg PO DAILY levothyroxine 112 mcg capsule 112 mcg PO DAILY metformin 500 mg tablet 500 mg PO BID magnesium hydroxide [Milk of Magnesia] 400 mg/5 mL suspension 30 ml PO DAILY PRN acetaminophen [Tylenol Extra Strength] 500 mg tablet 500 mg PO Q6H PRN cholecalciferol (vitamin D3) 25 mcg (1,000 unit) capsule 25 mcg PO DAILY Taltz Autoinjector 80 mg/mL auto-injector 80 mg subcut Q4W divalproex 500 mg tablet,delayed release (DR/EC) 1,500 mg PO HS cholecalciferol (vitamin D3) 10 mcg (400 unit) capsule 1,000 unit PO MONTHLY clonazepam [Klonopin] 1 mg tablet 1 mg PO DAILY PRN cbd drops 0.5 ml PO DAILY fleets enema 1 dose OH PRN Rx Instructions: 1 rectally; calcium carbonate [Antacid (calcium carbonate)] 200 mg calcium (500 mg) tablet,chewable 400 mg PO Q4H PRN No Action risperidone [Risperdal] 2 mg tablet 2 mg PO BID risperidone [Risperdal] 3 mg tablet 3 mg PO BID Discharge Instructions Additional Instructions: You were seen in the ED and evaluated by mental health ([facility]). You were felt safe for discharge back to [facility] and should continue current medications with close follow up with your outpatient team. Return to ED for significantly worsening depression, self harm intent, other concerns. HPI General Mode of arrival: EMS. Date/Time Provider Initiated Documentation: 02/04/25 00:18. Limitations to Documentation: no limitations. Information obtained by: patient, RN notes reviewed and old records reviewed. HPI Narrative: Patient presents to ED with complaint of suicidal ideation. Patient reports increasing thoughts of self-harm over the last week. Patient is compliant with medications and is followed by therapist. He has not attempted any self-harm or injury but reports increased thoughts of same. He does have prior attempts. He has no physical complaint other than headache which is a chronic intermittent problem. He has no neurologic complaints otherwise. He is a client at [facility]. Related Data Home Medications ?Medication ?Instructions ?Recorded ?Confirmed acetaminophen 500 mg tablet 500 mg PO Q6H PRN 01/01/24 02/03/25 (Tylenol Extra Strength) bisacodyl 10 mg rectal suppository 10 mg OH DAILY PRN 01/01/24 02/03/25 cetirizine 10 mg capsule (Allergy 10 mg PO DAILY PRN 01/01/24 02/03/25 Relief (cetirizine)) cholecalciferol (vitamin D3) 25 25 mcg PO DAILY 01/01/24 02/03/25 mcg (1,000 unit) capsule diphenhydramine HCl 25 mg capsule 25 mg PO TID PRN 01/01/24 02/03/25 (Benadryl) folic acid 1 mg tablet 1 mg PO DAILY 01/01/24 02/03/25 levothyroxine 112 mcg capsule 112 mcg PO DAILY 01/01/24 02/03/25 magnesium hydroxide 400 mg/5 mL 30 ml PO DAILY PRN 01/01/24 02/03/25 oral suspension (Milk of Magnesia) metformin 500 mg tablet 500 mg PO BID 01/01/24 02/03/25 risperidone 2 mg tablet (Risperdal) 2 mg PO BID 01/01/24 11/21/24 risperidone 3 mg tablet (Risperdal) 3 mg PO BID 01/01/24 11/21/24 ixekizumab 80 mg/mL subcutaneous 80 mg subcut Q4W 02/03/24 02/03/25 auto-injector (Taltz Autoinjector) calcium carbonate (Antacid 400 mg PO Q4H PRN 08/03/24 02/03/25 (calcium carbonate)) cbd drops 0.5 ml PO DAILY 08/03/24 02/03/25 cholecalciferol (vitamin D3) 10 1,000 unit PO MONTHLY 08/03/24 02/03/25 mcg (400 unit) capsule clonazepam 1 mg tablet (Klonopin) 1 mg PO DAILY PRN 08/03/24 02/03/25 divalproex 500 mg tablet,delayed 1,500 mg PO HS 08/03/24 02/03/25 release fleets enema 1 dose OH PRN 08/03/24 02/03/25 Allergies Allergy/AdvReac Type Severity Reaction Status Date / Time milk Allergy Intermediate Diarrhea Verified 02/03/25 23:17 adhesive tape Allergy Unknown Unknown Verified 02/03/25 23:17 amoxicillin (From Augmentin) Allergy Unknown Unknown Verified 02/03/25 23:17 clavulanic acid (From Allergy Unknown Unknown Verified 02/03/25 23:17 Augmentin) hydrocodone Allergy Unknown Unknown Verified 02/03/25 23:17 Sulfa (Sulfonamide Allergy Unknown Unknown Verified 02/03/25 23:17 Antibiotics) General Stated Complaint: PsychEval LYDIA: 2 Exam Narrative Exam Narrative: Const: WDWN male in NAD. VS per triage. HEENT: NC/AT. Normal facial exam. Neck: Supple. Trachea midline. Lungs: Normal respiratory effort. Lungs are clear. Cor: RRR without murmur. Good radial pulses. Neuro: A+O x 3. Normal speech, mentation, gait. Cranial nerves II - XII grossly intact. No gross motor or sensory deficit. Psych: Reports SI. Has good eye contact, normal speech, normal mood and affect. Course Vital Signs Vital signs: Vital Signs Temperature 98.1 F 02/03/25 23:14 Pulse 89 02/03/25 23:14 Respiratory Rate 18 02/03/25 23:14 Blood Pressure 118/88 02/03/25 23:14 Pulse Oximetry 98 02/03/25 23:14 Temperature 98.1 F 02/03/25 23:14 Temperature Source Oral 02/03/25 23:14 Pulse 89 02/03/25 23:14 Respiratory Rate 18 02/03/25 23:14 Blood Pressure 118/88 02/03/25 23:14 Pulse Oximetry 98 02/03/25 23:14 Oxygen Delivery Method Room Air 02/03/25 23:14 Oxygen Flow Rate 0 02/03/25 23:14 Medical Decision Making Patient presenting to ED with report of increased suicidal thoughts. Patient does report history of suicide attempts. Denies any attempts in this last week despite the increased thoughts. Patient is a resident at [facility] and is supervised. He reports being compliant with medications and appointments. Will consult [facility] for mental health eval. Patient has been evaluated by mental health. Patient is known to [facility]. This is not something new in regards to patient's presentation. He is felt safe for discharge back to [facility] for further outpatient management. Return precautions provided. PFSH All Active Problems (Updated 02/04/25 @ 01:10 by Triston Delacruz MD) Suicidal thoughts (Acute) Mental health problem (Acute) Unexplained weight loss (Acute) Plantar fasciitis, bilateral (Acute) Tinea pedis (Acute) Suicidal behavior (Acute) Multiple joint pain (Acute) Skin tag (Acute) Plaque psoriasis (Acute) Atopic dermatitis (Acute) Migraine (Chronic) Insomnia (Acute) Adjustment disorder with mixed anxiety and depressed mood (Acute) Nicotine dependence (Acute) Major depression, single episode (Acute) Vitamin D deficiency (Acute) Diabetes mellitus (Chronic) Hypothyroidism (Chronic) Onychomycosis (Acute) Medical History (Updated 02/04/25 @ 01:10 by Triston Delacruz MD) 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
--- NOTE | 2025-02-04 02:09 | PDOC.MHCN_ITS ---
Date of service: 02/04/25 Time of Service: 00:45 PHQ-9 Over the last 2 weeks, how often have you been bothered by any of the following problems? 1. Little interest or pleasure in doing things: nearly every day 2. Feeling down, depressed, or hopeless: nearly every day 3. Trouble falling or staying asleep, or sleeping too much: nearly every day 4. Feeling tired or having little energy: nearly every day 5. Poor appetite or overeating: more than half the days 6. Feeling bad about yourself - or that you are a failure or have let yourself and your family down: nearly every day 7. Trouble concentrating on things, such as reading the newspaper or watching television: nearly every day 8. Moving or speaking so slowly that other people could have noticed? - Or the opposite - being so fidgety or restless that you have been moving around a lot more than usual: not at all 9. Thoughts that you would be better off or of hurting yourself in some way: nearly every day Total score: 23 If you checked off any problems, how difficult have these problems made it for you to do your work, take care of things at home, or get along with other people?: extremely difficult Source: Developed by Drs. Triston Titus, Haydee Reyes, Junior Brooke and colleagues, with an educational ira from [employer]. Suicide Severity Rate CSSRS Have you wished you were or wished you could go to sleep and not wake up?: Yes Have you actually had any thoughts of killing yourself?: Yes CSSRS2 Have you been thinking about how you might do this?: Yes Have you had these thoughts and had some intention of acting on them?: Yes Have you started to work out or worked out the details of how to kill yourself? Do you intend to carry out this plan?: Yes CSSRS3 Have you ever done anything, started to do anything or prepared to do anything to end your life?: Yes CSSRS4 Was this within the past three months?: No Screening Score Total Score: 6 Screening: Positive Mental Health Emergency Note Release [facility] release signed:: Yes Reason for Visit Client presented to the [facility] with suicidal ideations with intent and plan following a 911 call. 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 The client reports that he has been hospitalized at [facility], [facility], and [facility]. He reports his last hosp italization was at [facility] last year. The client is followed by community providers to include his PCP as [facility]- Vika Navarrete, PMHNP - [place] Ira[place], And private practice therapist Sharon Shah. In the last 2 weeks has the pt presented for ES prior to today?: No Client Information Well Housed: Yes Non Suicidal Self Injury Current: No History: yes, The client reports engaging in NSSI by cutting in the past. Safety Risk/Harm to Self or Others Current Ideation to Harm Self or Others: Yes to self. Intent: yes, has intent. Plan: yes,has a plan. History of suicide attempt: yes,history of suicide attempt reported. Details of previous suicide attempt: The client reports a history of past attempts on his life by overdoes, hanging and going outside in the cold wit h hardly any clothes on. Risk: Does risk to harm exist?: No Risk: Low Risk Duty to warn indicated: No Asssessment/Mental Status Appearance: Poor hygiene Attitude: Guarded and Friendly Behavior: Unremarkable Speech: Normal Affect: Cogruent with mood Mood: Other (The client reports their mood as up and down.) Thought process: Poverty of content Hallucinations: yes, (The client reports seeing sound and hearing color.) Visual and Auditory Delusions: No Attention: Unremarkable Perception: Not impaired Orientation: Fully orientated Memory: Intact Insight: Poor Judgement: Poor Neurovegetative Symptoms Sleep: Decrease Appetitie: No change Interests: Decrease Energy: Decrease Libido: Not applicable Additional Issues: Assaultive/Threatening Behavior: No Medical Concerns: No Client engaged in active self harm w/weapon: No Threatening to run away: No Child reported abuse/neglect: No Voluntarily presenting for services: Yes Domestic violence is a concern: No Extreme Psychosis or extreme behavior is present: No Impression The client is a 29 year old single biological male who resides at [facility] in [place]. The client presents in blue paper scrubs in the ED of [facility]. Affect is appears to be congruent with mood. Speech is in normal range. Client is friendly and guarded with this clinician; they report their mood as up and down. Thought process appears to be a poverty of content. There are no delusions observed. The client reports having visual and auditory hallucinations. The client reports seeing sounds and hearing colors. Cognitive assessment reveals orientation to person, place and time. The client reports presenting to the [facility] ED with suicidal thoughts and a plan of strangling himself with a cord. The client states he has no idea why he feels this way. When asked on a scale from zero to ten, with zero being I won't do anything to end my life and ten being I will do anything possible to end my life by suicide where they would rate themselves. The client rated himself at a 9 out of 10. The client denies HI to this clinician. The client denies NSSI currently, but states he has engaged in NSSI in the past. The client scored a 23/27 on the PHQ-9, and a 6/6 on the CSSRS. The client has no access to means and is staffed 16/02 at [facility]. The client denied to want to complete a safety plan with this telegraphic typewriter operator chief, and was discharged from [facility]. The client was agreeable to do a check in call with emergency services at 11am on 02/04/2025. Plan/Disposition Recommended Disposition: Other (The client was discharged home to staff. ). Plan: The client denied to want to complete a safety plan with this telegraphic typewriter operator chief, and was discharged from [facility]. The client was agreeable to do a check in call with emergency services at 11am on 02/04/2025. Reports/communication Outcome discussed with: ED/Personnel
== END 2025-02-04 01:34 | disposition home or self-care (01) ==
PROVIDERS: Emergency Provider Emergency Medicine; PCP Nurse Practitioner Family
DX: F48.8 Other specified nonpsychotic mental disorders (principal); R45.851 Suicidal ideations
CPT/HCPCS: 99283; 99285; 00123; 96127

== ENCOUNTER 2025-02-09 19:44 | Outpatient (REF) | payer MEDICAID, SELFPAY ==
[2025-02-09 22:40] LABS: TSH (W/Ref FT4) 0.64 uIU/mL (0.36-3.74)
== END 2025-02-09 19:45 | disposition home or self-care (01) ==
LOC: NCHCN 19:44
PROVIDERS: PCP Nurse Practitioner Family; Visit Provider Nurse Practitioner Family
DX: E03.9 Hypothyroidism, unspecified (principal)
CPT/HCPCS: 84443

== ENCOUNTER 2025-03-02 23:41 | Emergency (ER) | payer MEDICAID, SELFPAY ==
--- NOTE | 2025-03-02 23:30 | RT.EKG_ITS ---
APPROVED REPORT Exam: Resting ECG Reason for Exam: chest pain Patient Location: E HR:61 bpm ECG Measurements Heart Rate 61 AXIS CA 141 P 57 QRSd 86 QRS 0 QT 396 T 23 QTc 399 Conclusion Sinus rhythm...normal P axis, V-rate 60- 99 Physician: No STEMI
[2025-03-02 23:40] VITALS: BP 122/53; PULSE 74; RESP 18; TEMP 36.8; O2SAT 99
[2025-03-02 23:44] VITALS: RESP 16
[2025-03-03] MEDS: MYLANTA 30 ML, LIDOCAINE 2% VISCOUS UD 15 ML PO (00:04)
[2025-03-03] MEDS: Pantoprazole 40 MG TABCR PO (00:04)
[2025-03-03] MEDS: Sucralfate 1 GM TAB PO (00:04)
--- NOTE | 2025-03-03 00:21 | W.ED.GENAD ---
Discharge Plan Disposition Patient Disposition: Home Condition: Good Discharge Details Clinical Impression: Chest pain due to GERD Primary Care Provider: Magda To ED Provider: Wan Simeon Home Meds and New Rx's Prescriptions: New sucralfate [Carafate] 1 gram tablet 1 g PO BID Qty: 60 0RF pantoprazole [Protonix] 40 mg tablet,delayed release (DR/EC) 40 mg PO DAILY Qty: 60 0RF No Action diphenhydramine HCl [Benadryl] 25 mg capsule 25 mg PO TID PRN bisacodyl 10 mg suppository 10 mg NE DAILY PRN Allergy Relief (cetirizine) 10 mg capsule 10 mg PO DAILY PRN folic acid 1 mg tablet 1 mg PO DAILY levothyroxine 112 mcg capsule 112 mcg PO DAILY metformin 500 mg tablet 500 mg PO BID magnesium hydroxide [Milk of Magnesia] 400 mg/5 mL suspension 30 ml PO DAILY PRN risperidone [Risperdal] 2 mg tablet 2 mg PO BID risperidone [Risperdal] 3 mg tablet 3 mg PO BID acetaminophen [Tylenol Extra Strength] 500 mg tablet 500 mg PO Q6H PRN cholecalciferol (vitamin D3) 25 mcg (1,000 unit) capsule 25 mcg PO DAILY Taltz Autoinjector 80 mg/mL auto-injector 80 mg subcut Q4W divalproex 500 mg tablet,delayed release (DR/EC) 1,500 mg PO HS cholecalciferol (vitamin D3) 10 mcg (400 unit) capsule 1,000 unit PO MONTHLY clonazepam [Klonopin] 1 mg tablet 1 mg PO DAILY PRN cbd drops 0.5 ml PO DAILY fleets enema 1 dose NE PRN Rx Instructions: 1 rectally; calcium carbonate [Antacid (calcium carbonate)] 200 mg calcium (500 mg) tablet,chewable 400 mg PO Q4H PRN hydroxyzine HCl .ROUTE Discharge Instructions Instructions: Acid reflux and GERD in adults Additional Instructions: At this time your EKG and your evaluation has returned reassuring. Your symptoms appear to be consistent with gastroesophageal reflux. Please avoid any tomato-based products. Avoid any caffeine or spicy foods. Please take the prescribed medications of the Carafate and Protonix as directed. These have been sent to your pharmacy on file. If you notice any worsening of your symptoms, or any new symptoms such as vomiting, diarrhea, fever, chills, shortness of breath, chest pain, numbness, weakness, or fainting , please return immediately to the emergency department for reevaluation. Please follow up with your primary care provider as soon as possible for reassessment and reevaluation. As always, it was a pleasure participating in your medical care today. Referrals: Magda To [Primary Care Provider, Medicine] HPI General Date/Time Provider Initiated Documentation: 03/02/25 23:45. 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 Patient states that the chest pain has been going on for the last week or so, it is burning in nature, and is worse when he lies down flat. He has been making a lot of pizzas with red sauce recently. He admits to occasional vomiting over the last few weeks, but no vomiting today. He denies any tearing or ripping sensation. He denies any fever or chills. No numbness or tingling. No hematemesis. No other complaints at this time. Related Data Home Medications ?Medication ?Instructions ?Recorded ?Confirmed acetaminophen 500 mg tablet 500 mg PO Q6H PRN 01/01/24 03/02/25 (Tylenol Extra Strength) bisacodyl 10 mg rectal suppository 10 mg NE DAILY PRN 01/01/24 03/02/25 cetirizine 10 mg capsule (Allergy 10 mg PO DAILY PRN 01/01/24 03/02/25 Relief (cetirizine)) cholecalciferol (vitamin D3) 25 25 mcg PO DAILY 01/01/24 03/02/25 mcg (1,000 unit) capsule diphenhydramine HCl 25 mg capsule 25 mg PO TID PRN 01/01/24 03/02/25 (Benadryl) folic acid 1 mg tablet 1 mg PO DAILY 01/01/24 03/02/25 levothyroxine 112 mcg capsule 112 mcg PO DAILY 01/01/24 03/02/25 magnesium hydroxide 400 mg/5 mL 30 ml PO DAILY PRN 01/01/24 03/02/25 oral suspension (Milk of Magnesia) metformin 500 mg tablet 500 mg PO BID 01/01/24 03/02/25 risperidone 2 mg tablet (Risperdal) 2 mg PO BID 01/01/24 03/02/25 risperidone 3 mg tablet (Risperdal) 3 mg PO BID 01/01/24 03/02/25 ixekizumab 80 mg/mL subcutaneous 80 mg subcut Q4W 02/03/24 03/02/25 auto-injector ([employer] Autoinjector) calcium carbonate (Antacid 400 mg PO Q4H PRN 08/03/24 03/02/25 (calcium carbonate)) cbd drops 0.5 ml PO DAILY 08/03/24 03/02/25 cholecalciferol (vitamin D3) 10 1,000 unit PO MONTHLY 08/03/24 03/02/25 mcg (400 unit) capsule clonazepam 1 mg tablet (Klonopin) 1 mg PO DAILY PRN 08/03/24 03/02/25 divalproex 500 mg tablet,delayed 1,500 mg PO HS 08/03/24 03/02/25 release fleets enema 1 dose NE PRN 08/03/24 03/02/25 hydroxyzine HCl .ROUTE 03/02/25 pantoprazole 40 mg tablet,delayed 40 mg PO DAILY #60 tabs 03/03/25 release (Protonix) sucralfate 1 gram tablet (Carafate) 1 g PO BID #60 tabs 03/03/25 Previous Rx's ?Medication ?Instructions ?Recorded pantoprazole 40 mg tablet,delayed 40 mg PO DAILY #60 tabs 03/03/25 release (Protonix) sucralfate 1 gram tablet (Carafate) 1 g PO BID #60 tabs 03/03/25 Allergies Allergy/AdvReac Type Severity Reaction Status Date / Time milk Allergy Intermediate Diarrhea Verified 03/02/25 23:49 adhesive tape Allergy Unknown Unknown Verified 03/02/25 23:49 amoxicillin (From Augmentin) Allergy Unknown Unknown Verified 03/02/25 23:49 clavulanic acid (From Allergy Unknown Unknown Verified 03/02/25 23:49 Augmentin) hydrocodone Allergy Unknown Unknown Verified 03/02/25 23:49 Sulfa (Sulfonamide Allergy Unknown Unknown Verified 03/02/25 23:49 Antibiotics) nicotine AdvReac Mild Other (See Verified 03/03/25 00:52 Comment) General Stated Complaint: Chest Pain LYDIA: 3 Exam Narrative Exam Narrative: 1.Const: Well-nourished, Well-developed, appearing stated age 2.Eyes: PERRL, no conjunctival injection, and symmetrical lids. 3.ENT: Atraumatic external nose and ears. Moist MM. Neck: Symmetric, trachea midline, No thyromegaly. 4.CVS: +S1/S2, Peripheral pulses 2+ and equal in all extremities. Brisk capillary refill in all extremities. 5.RESP: Unlabored respiratory effort. Clear to auscultation bilaterally. No wheezes rales or rhonchi 6.GI: Soft, Nontender/Nondistended, No hepatosplenomegaly. No guarding or rebound. 7.MSK: Normocephalic/Atraumatic, Extremities w/o deformity or ttp No cyanosis or clubbing, Normal movement of all extremities 8.Skin: Warm, Dry. No rashes or lesions. 9.Neuro: atm mechanic II-XII grossly intact. Sensation grossly intact, no focal neurologic deficits. 10.Psych: (AAO) x3. Appropriate mood and affect Course Vital Signs Vital signs: Vital Signs Temperature 36.8 C 03/02/25 23:40 Pulse 74 03/02/25 23:40 Respiratory Rate 18 03/02/25 23:40 Blood Pressure 122/53 L 03/02/25 23:40 Pulse Oximetry 99 03/02/25 23:40 Temperature 36.8 C 03/02/25 23:40 Temperature Source Oral 03/02/25 23:40 Pulse 74 03/02/25 23:40 Respiratory Rate 16 03/02/25 23:44 Respiratory Effort Normal, Non-Labored 03/02/25 23:44 Respiratory Depth Normal 03/02/25 23:44 Respiratory Pattern Normal 03/02/25 23:44 Blood Pressure 122/53 L 03/02/25 23:40 Blood Pressure Position Sitting 03/02/25 23:40 Pulse Oximetry 99 03/02/25 23:40 Oxygen Delivery Method Room Air 03/02/25 23:40 Oxygen Flow Rate 0 03/02/25 23:40 Pain Level 10 03/02/25 23:44 Medical Decision Making This is a pleasant 29-year-old male with a past medical history of traumatic brain injury, chronic suicidal behavior which she is watched every 5 to 15-minute intervals with home care, 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 Patient states that the chest pain has been going on for the last week or so, it is burning in nature, and is worse when he lies down flat. He has been making a lot of pizzas with red sauce recently. He admits to occasional vomiting over the last few weeks, but no vomiting today. He denies any tearing or ripping sensation. He denies any fever or chills. No numbness or tingling. No hematemesis. No other complaints at this time. Physical exam demonstrates a well-appearing male, no tachycardia tachypnea or hypoxemia. EKG shows no evidence of STEMI. No signs of cardiac strain. Symptoms appear inconsistent with pneumonia, dissection, or pneumothorax. Lung sounds equal bilaterally. No subcutaneous crepitus. Symptoms inconsistent with cardiac etiology. No pleuritic chest pain to suggest PE. Symptoms are most concerning for GERD, with burning sensation worsening when he lies back, and with his recent diet. Will give GI cocktail Protonix. Will monitor closely and reassess. 12:22 AM On reassessment the patient is feeling much better. Symptoms have notably improved after GI cocktail. EKG shows no evidence of concerning abnormality otherwise. Symptomatology appears consistent with mild to moderate GERD. Recommend avoidance of tomato-based products, we will start him or other antacid medications at home Protonix and Carafate. Discussed this with his caregiver as well. I have extensively reviewed the treatment plan and discharge instructions with the patient and their family. I have addressed all patient concerns at this time. The patient and family was made aware of what symptoms to monitor for that would warrant a return to the emergency department. Discussed the plan with the patient and family, they demonstrate verbal understanding and agreement with our assessment and plan at this time. The documentation in this chart was dictated using [email or web address] dictation software. Please excuse any dictation errors. PFSH All Active Problems (Updated 03/03/25 @ 00:54 by Wan Simeon DO) Chest pain due to GERD (Acute) Suicidal thoughts (Acute) Mental health problem (Acute) Unexplained weight loss (Acute) Plantar fasciitis, bilateral (Acute) Tinea pedis (Acute) Suicidal behavior (Acute) Multiple joint pain (Acute) Skin tag (Acute) Plaque psoriasis (Acute) Atopic dermatitis (Acute) Migraine (Chronic) Insomnia (Acute) Adjustment disorder with mixed anxiety and depressed mood (Acute) Nicotine dependence (Acute) Major depression, single episode (Acute) Vitamin D deficiency (Acute) Diabetes mellitus (Chronic) Hypothyroidism (Chronic) Onychomycosis (Acute) Medical History (Updated 03/03/25 @ 00:54 by Wan Simeon DO) 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
[2025-03-03] MEDS: Nicotine 4 MG LOZG SUC (00:24)
== END 2025-03-03 01:34 | disposition home or self-care (01) ==
PROVIDERS: Emergency Provider Student in an Organized Health Care Education/Training Program; PCP Nurse Practitioner Family
DX: R07.9 Chest pain, unspecified (principal); K21.9 Gastro-esophageal reflux disease without esophagitis
CPT/HCPCS: 99283 ×2; 93005; 93010

== ENCOUNTER 2025-06-21 19:04 | Outpatient (REF) | payer MEDICAID, SELFPAY | END 2025-06-21 19:05 | disposition home or self-care (01) | LOC: NCHCN 19:04 | PROVIDERS: PCP Nurse Practitioner Family; Visit Provider Nurse Practitioner Family | DX: E11.9 Type 2 diabetes mellitus without complications (principal) | CPT/HCPCS: 82043; 82570 ==

== ENCOUNTER 2025-06-24 19:18 | Outpatient (REF) | payer MEDICAID, SELFPAY ==
[2025-06-24 19:44] LABS: ALT 21 U/L (10-49); AST 19 U/L (<34); Albumin 4.4 g/dL (3.2-5.0); Alkaline Phosphatase 59 U/L (46-116); Anion Gap 7.7 mmol/L (3-11); BUN 11 mg/dL (9-23); Bilirubin, Total 0.40 mg/dL (0.2-1.2); CO2 27.3 mmol/L (20.0-31.0); Calcium 9.4 mg/dL (8.3-10.6); Chloride 104 mmol/L (98-107); Glucose 119 mg/dL (74-106); Potassium 4.3 mmol/L (3.5-5.1); Sodium 139 mmol/L (136-145); Total Protein 6.9 g/dL (5.7-8.2)
== END 2025-06-24 19:19 | disposition home or self-care (01) ==
LOC: NCHCN 19:18
PROVIDERS: PCP Nurse Practitioner Family; Visit Provider Nurse Practitioner Family
DX: E11.9 Type 2 diabetes mellitus without complications (principal)
CPT/HCPCS: 80053

== ENCOUNTER 2025-07-02 00:49 | Emergency (ER) | payer MEDICAID, SELFPAY ==
--- NOTE | 2025-07-02 00:30 | RT.EKG_ITS ---
APPROVED REPORT Exam: Resting ECG Reason for Exam: Chest pain Patient Location: E HR:97 bpm ECG Measurements Heart Rate 97 AXIS MS 135 P 55 QRSd 90 QRS -10 QT 342 T 39 QTc 434 Conclusion Sinus rhythm...normal P axis, V-rate 60- 99 ST elev, probable normal early repol pattern...ST elevation, age<[address] segment or T wave abnormalities to suggest occlusive [place]
[2025-07-02 00:49] VITALS: BP 118/75; PULSE 90; RESP 18; TEMP 36.4; O2SAT 97
--- NOTE | 2025-07-02 00:56 | W.ED.GENAD ---
Discharge Plan Disposition Patient Disposition: Home Condition: Good Discharge Details Clinical Impression: Chest pain, Suicidal ideation Primary Care Provider: Magda To ED Provider: Jennifer Sheehan Home Meds and New Rx's Prescriptions: Continued diphenhydramine HCl [Benadryl] 25 mg capsule 25 mg PO TID PRN bisacodyl 10 mg suppository 10 mg SC DAILY PRN Allergy Relief (cetirizine) 10 mg capsule 10 mg PO DAILY PRN folic acid 1 mg tablet 1 mg PO DAILY levothyroxine 112 mcg capsule 112 mcg PO DAILY metformin 500 mg tablet 500 mg PO BID magnesium hydroxide [Milk of Magnesia] 400 mg/5 mL suspension 30 ml PO DAILY PRN risperidone [Risperdal] 2 mg tablet 2 mg PO BID risperidone [Risperdal] 3 mg tablet 3 mg PO BID acetaminophen [Tylenol Extra Strength] 500 mg tablet 500 mg PO Q6H PRN cholecalciferol (vitamin D3) 25 mcg (1,000 unit) capsule 25 mcg PO DAILY Taltz Autoinjector 80 mg/mL auto-injector 80 mg subcut Q4W divalproex 500 mg tablet,delayed release (DR/EC) 1,500 mg PO HS cholecalciferol (vitamin D3) 10 mcg (400 unit) capsule 1,000 unit PO MONTHLY cbd drops 0.5 ml PO DAILY fleets enema 1 dose SC PRN Rx Instructions: 1 rectally; calcium carbonate [Antacid (calcium carbonate)] 200 mg calcium (500 mg) tablet,chewable 400 mg PO Q4H PRN hydroxyzine HCl .Route sucralfate [Carafate] 1 gram tablet 1 g PO BID Qty: 60 0RF pantoprazole [Protonix] 40 mg tablet,delayed release (DR/EC) 40 mg PO DAILY Qty: 60 0RF Discontinued clonazepam [Klonopin] 1 mg tablet 1 mg PO DAILY PRN Discharge Instructions Instructions: Suicide Prevention, Chest Pain, Adult ED Additional Instructions: You can take tylenol and ibuprofen over the counter for pain; follow the directions on the bottle. Call your primary care doctor in the morning to schedule an appointment for within the next 48 hours to followup on your visit here. At that visit please discuss your chest pain as well as your suicidal thoughts. Return to the emergency department for new or worsening symptoms including new/different/worse chest pain, difficulty breathing, if you feel unsafe or like you are going to hurt yourself or someone else, or if you have any other concerns. Stand Alone Forms: Portal Information Discharge Data Discharge Date/Time-TO BE ENTERED AT DEPARTURE: 07/02/25 03:43 HPI General Mode of arrival: EMS. Date/Time Provider Initiated Documentation: 07/02/25 00:56. Limitations to Documentation: no limitations. Information obtained by: patient and old records reviewed. HPI Narrative: 29yo M with hx TBI, developmental delay, DM, hypothyroid, depression with chronic SI on q15 minute checks at long term, presenting for chest pain. Reports that around 1900 after dinner he began to have substernal chest pain which is worse with movement. Nonradiating. Feels like pressure. Tried tylenol without much improvement. Associated intermittent cough and sore throat. No difficulty swallowing. No shortness of breath. He does report SI with plan to walk out into the snow, feels like his SI is worse than usual. Otherwise in his usual state of health with no fevers, chills, rash, nausea, vomiting, lightheadedness, neck pain, LE edema, or other concerns. Related Data Home Medications ?Medication ?Instructions ?Recorded ?Confirmed acetaminophen 500 mg tablet 500 mg PO Q6H PRN 01/01/24 07/02/25 (Tylenol Extra Strength) bisacodyl 10 mg rectal suppository 10 mg SC DAILY PRN 01/01/24 07/02/25 cetirizine 10 mg capsule (Allergy 10 mg PO DAILY PRN 01/01/24 07/02/25 Relief (cetirizine)) cholecalciferol (vitamin D3) 25 25 mcg PO DAILY 01/01/24 07/02/25 mcg (1,000 unit) capsule diphenhydramine HCl 25 mg capsule 25 mg PO TID PRN 01/01/24 07/02/25 (Benadryl) folic acid 1 mg tablet 1 mg PO DAILY 01/01/24 07/02/25 levothyroxine 112 mcg capsule 112 mcg PO DAILY 01/01/24 07/02/25 magnesium hydroxide 400 mg/5 mL 30 ml PO DAILY PRN 01/01/24 07/02/25 oral suspension (Milk of Magnesia) metformin 500 mg tablet 500 mg PO BID 01/01/24 07/02/25 risperidone 2 mg tablet (Risperdal) 2 mg PO BID 01/01/24 07/02/25 risperidone 3 mg tablet (Risperdal) 3 mg PO BID 01/01/24 07/02/25 ixekizumab 80 mg/mL subcutaneous 80 mg subcut Q4W 02/03/24 07/02/25 auto-injector (Taltz Autoinjector) calcium carbonate (Antacid 400 mg PO Q4H PRN 08/03/24 07/02/25 (calcium carbonate)) cbd drops 0.5 ml PO DAILY 08/03/24 07/02/25 cholecalciferol (vitamin D3) 10 1,000 unit PO MONTHLY 08/03/24 07/02/25 mcg (400 unit) capsule divalproex 500 mg tablet,delayed 1,500 mg PO HS 08/03/24 07/02/25 release fleets enema 1 dose SC PRN 08/03/24 07/02/25 hydroxyzine HCl .Route 03/02/25 pantoprazole 40 mg tablet,delayed 40 mg PO DAILY #60 tabs 03/03/25 07/02/25 release (Protonix) sucralfate 1 gram tablet (Carafate) 1 g PO BID #60 tabs 03/03/25 07/02/25 Previous Rx's ?Medication ?Instructions ?Recorded pantoprazole 40 mg tablet,delayed 40 mg PO DAILY #60 tabs 03/03/25 release (Protonix) sucralfate 1 gram tablet (Carafate) 1 g PO BID #60 tabs 03/03/25 Allergies Allergy/AdvReac Type Severity Reaction Status Date / Time milk Allergy Intermediate Diarrhea Verified 07/02/25 01:01 adhesive tape Allergy Unknown Unknown Verified 07/02/25 01:01 amoxicillin (From Augmentin) Allergy Unknown Unknown Verified 07/02/25 01:01 clavulanic acid (From Allergy Unknown Unknown Verified 07/02/25 01:01 Augmentin) hydrocodone Allergy Unknown Unknown Verified 07/02/25 01:01 Sulfa (Sulfonamide Allergy Unknown Unknown Verified 07/02/25 01:01 Antibiotics) nicotine AdvReac Mild Other (See Verified 07/02/25 01:01 Comment) General LYDIA: 3 Exam Narrative Exam Narrative: General: Alert, well appearing, well nourished, in no acute distress. Head: Normocephalic, atraumatic Neck: Trachea midline, ?Neck supple. ENT: ?MMM.? No oropharygeal lesions or exudate. Cardiac: ?RRR, no murmurs appreciated Resp: No respiratory distress. CTAB. Abd: ?Soft, non-distended, nontender : ?No suprapubic tenderness. No CVA tenderness. Extremities: ?No deformities.? No peripheral edema. Neurologic: GCS 15. ? Moves all extremities freely against gravity Psych: Calm, cooperative.? Well groomed.? Mood okay I guess, affect congruent.? Speech with normal volume, rate, rythym and tone. Linear and goal directed.? +SI with plan to walk into snow. Denies HI/AH/VH. ? Does not appear to be responding to internal stimuli. Medical Decision Making 29yo M with hx TBI, developmental delay, DM, hypothyroid, depression with chronic SI on q15 minute checks at long term, presenting for chest pain. Reports that around 1900 after dinner he began to have substernal chest pain which is worse with movement. Similar symptoms in the past with reflux. Vital signs reassuring on arrival. Well appearing on exam, lungs CTAB, no epigastric tenderness. History and exam not suggestive of pericardidtis, pancreatitis, perforated ulcer, pulmonary embolism, aortic dissection, gallbladder pathology. Low suspicion for ACS; will get EKG and given duration of symptoms single troponin. -EKG SR, appropriate intervals, ST changes consistent with early repol, no ST segment or T wave abnormalities to suggest occlusive [place]. -Labs reviewed as below, CBC reassuring with no leukocytosis or anemia, CMP with no actionable abnormalities, Mg normal, TSH normal, troponin reassuring x 2. Low risk HEART score; would not further pursue -Respiratory viral swab negative -CXR independently reviewed, no focal pneumonia or pneumothorax or pneumonia or pleural effusion on my view, radiology read with no acute findings. Given toradol and GI cocktail, subsequently patient reports pain has resolved. Given reporting SI, will have [facility] see patient as they are familiar with him and his baseline. He reports SI is worse than usual; of note, is at long term on frequent observation. [facility] evaluated patient; see their note for details. Of note, to [facility] he does report hallucinations and intent to harm others however these are not new. Per [facility] worker who is very familiar with patient, he is at his baseline. He did refuse to engage in safety planning but that is not atypical for him. No indication seen for inpatient treatment at this time and I concur with their recommendations given his current placement. He does plan to followup with his therapist on Friday. Discharged home; discharge instructions and return precautions were reviewed with patient and caregiver at bedside who verbalized understanding. All questions were answered and he is in agreemeyn with the plan. Lab Data Lab results reviewed: Yes I reviewed the patient's lab results. Labs: Laboratory Tests Range/Units 07/02/25 07/02/25 07/02/25 01:05 01:10 02:10 WBC (4.4-10.8) 10^3/uL 5.10 RBC (4.36-5.78) 10^6/uL 4.63 Hgb (13.5-17.5) g/dL 14.1 Hct (40.0-50.0) % 41.3 MCV (80-95) fL 89 MCH (27.0-33.0) pg 30.5 MCHC (32.0-36.0) % 34.1 RDW (11.8-14.1) % 12.1 Plt Count (130-400) 10^3/uL 211 MPV (8.0-11.0) fL 9.3 Immature Gran % % 0.2 Neutrophils % % 44.8 Lymphocytes % % 39.0 Monocytes % % 12.5 Eosinophils % % 3.1 Basophils % % 0.4 Nucleated RBC % (0.0-0.3) % 0.0 Absolute Neutrophils (1.2-6.7) 10^3/uL 2.28 Absolute Lymphocytes (1.2-3.4) 10^3/uL 1.99 Absolute Monocytes (0.1-0.8) 10^3/uL 0.64 Absolute Eosinophils (0.0-0.7) 10^3/uL 0.16 Absolute Basophils (0.0-0.2) 10^3/uL 0.02 Sodium (136-145) mmol/L 142 Potassium (3.5-5.1) mmol/L 3.7 Chloride (98-107) mmol/L 104 Carbon Dioxide (20.0-31.0) mmol/L 29.7 Anion Gap (3-11) mmol/L 8.3 BUN (9-23) mg/dL 16 Creatinine (0.73-1.18) mg/dL 0.52 L Est GFR (CKD-EPI 2020) (mL/min/1.73m2) 184.59 Glucose (74-106) mg/dL 148 H Calcium (8.3-10.6) mg/dL 9.3 Magnesium (1.6-2.6) mg/dL 1.8 Total Bilirubin (0.2-1.2) mg/dL 0.30 AST (<34) U/L 13 ALT (10-49) U/L 17 Alkaline Phosphatase (46-116) U/L 65 Troponin I (<54) ng/L 10 7 Total Protein (5.7-8.2) g/dL 7.1 Albumin (3.2-5.0) g/dL 4.5 COVID-19 Source Nasopharynx SARS-CoV-2 (PCR) (Negative) Negative Influenza Type A (PCR) (Negative) Negative Influenza Type B (PCR) (Negative) Negative RSV (PCR) (Negative) Negative Add-On Test Request DONE PFSH All Active Problems (Updated 07/02/25 @ 03:40 by Jennifer Sheehan MD) Suicidal ideation (Acute) Chest pain (Acute) Unexplained weight loss (Acute) Plantar fasciitis, bilateral (Acute) Tinea pedis (Acute) Suicidal behavior (Acute) Multiple joint pain (Acute) Skin tag (Acute) Plaque psoriasis (Acute) Atopic dermatitis (Acute) Migraine (Chronic) Insomnia (Acute) Adjustment disorder with mixed anxiety and depressed mood (Acute) Nicotine dependence (Acute) Major depression, single episode (Acute) Vitamin D deficiency (Acute) Diabetes mellitus (Chronic) Hypothyroidism (Chronic) Onychomycosis (Acute) Medical History (Updated 07/02/25 @ 03:40 by Jennifer Sheehan MD) 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
[2025-07-02 00:57] VITALS: RESP 16
[2025-07-02 01:23] LABS: Abs Immature Grans 0.01 10^3/uL (0.0-0.06); HCT 41.3 % (40.0-50.0); HGB 14.1 g/dL (13.5-17.5); Immature Grans % 0.2 %; MCH 30.5 pg (27.0-33.0); MCHC 34.1 % (32.0-36.0); MCV 89 fL (80-95); MPV 9.3 fL (8.0-11.0); Platelet Count 211 10^3/uL (130-400); RBC 4.63 10^6/uL (4.36-5.78); RDW 12.1 % (11.8-14.1); RDW-SD 39.5 fL; WBC 5.10 10^3/uL (4.4-10.8)
--- NOTE | 2025-07-02 01:35 | DI.RAD_ITS ---
Exam(s) XR CHEST 2V PA LATERAL EXAM: XR CHEST 2V PA LATERAL CLINICAL HISTORY: chest pain. TECHNIQUE: 2D digital imaging was performed. COMPARISON: CR,XR XR PORTABLE CHEST AP from 02/18/2024 FINDINGS: 2 views: Heart size is normal. The mediastinum is not widened. Lungs are clear. No infiltrates nor pleural effusions. IMPRESSION: No acute pulmonary findings. DATA REPOSITORY: RADIATION DOSE DELIVERED:
[2025-07-02 01:38] LABS: Magnesium 1.8 mg/dL (1.6-2.6)
[2025-07-02 01:39] LABS: Troponin I 10 ng/L (<54)
[2025-07-02 01:40] LABS: ALT 17 U/L (10-49); AST 13 U/L (<34); Albumin 4.5 g/dL (3.2-5.0); Alkaline Phosphatase 65 U/L (46-116); Anion Gap 8.3 mmol/L (3-11); BUN 16 mg/dL (9-23); Bilirubin, Total 0.30 mg/dL (0.2-1.2); CO2 29.7 mmol/L (20.0-31.0); Calcium 9.3 mg/dL (8.3-10.6); Chloride 104 mmol/L (98-107); Glucose 148 mg/dL (74-106); Potassium 3.7 mmol/L (3.5-5.1); Sodium 142 mmol/L (136-145); Total Protein 7.1 g/dL (5.7-8.2)
[2025-07-02 02:00] LABS: COVID-19 PCR Negative (Negative); RSV PCR Negative (Negative)
--- NOTE | 2025-07-02 02:04 | DI.VRAD_ITS ---
PROCEDURE INFORMATION: Exam: XR Chest Exam date and time: 07/02/2025 1:24 AM Age: 29 years old Clinical indication: Chest pressure; Chest pain TECHNIQUE: Imaging protocol: Radiologic exam of the chest. Views: 2 views. COMPARISON: CR XR PORTABLE CHEST AP 02/18/2024 10:32 PM FINDINGS: Lungs: Lungs are adequately inflated and symmetric. No focal consolidation or evidence of pulmonary edema. Pleural spaces: No pleural effusion. No pneumothorax. Heart/Mediastinum: Cardiomediastinal contours within normal limits. Bones/joints: No acute osseous finding. IMPRESSION: No acute findings. Dictated and Authenticated by: Romain Arredondo MD. Orderin Sissy Rodriguez MD
[2025-07-02 02:30] LABS: Troponin I 7 ng/L (<54)
[2025-07-02] MEDS: MYLANTA 30 ML, LIDOCAINE 2% VISCOUS UD 15 ML PO (02:35)
[2025-07-02] MEDS: Acetaminophen 325 MG TAB 650 MG PO (02:36)
[2025-07-02] MEDS: Ketorolac 15 MG/ML VIAL IVP (02:55)
[2025-07-02] MEDS: Benzonatate 100 MG CAP PO (02:56)
[2025-07-02 03:52] VITALS: BP 119/76; PULSE 86; RESP 16; O2SAT 97
--- NOTE | 2025-07-02 04:14 | PDOC.MHCN ---
Date of service: 07/02/25 Time of Service: 03:03 PHQ-9 Over the last 2 weeks, how often have you been bothered by any of the following problems? 1. Little interest or pleasure in doing things: nearly every day 2. Feeling down, depressed, or hopeless: nearly every day 3. Trouble falling or staying asleep, or sleeping too much: nearly every day 4. Feeling tired or having little energy: nearly every day 5. Poor appetite or overeating: nearly every day 6. Feeling bad about yourself - or that you are a failure or have let yourself and your family down: nearly every day 7. Trouble concentrating on things, such as reading the newspaper or watching television: nearly every day 8. Moving or speaking so slowly that other people could have noticed? - Or the opposite - being so fidgety or restless that you have been moving around a lot more than usual: not at all 9. Thoughts that you would be better off or of hurting yourself in some way: nearly every day Total score: 24 If you checked off any problems, how difficult have these problems made it for you to do your work, take care of things at home, or get along with other people?: somewhat difficult Source: Developed by Drs. Triston Titus, Haydee Reyes, Junior Brooke and colleagues, with an educational ira from [employer]. Suicide Severity Rate CSSRS Have you wished you were or wished you could go to sleep and not wake up?: Yes Have you actually had any thoughts of killing yourself?: Yes CSSRS2 Have you been thinking about how you might do this?: Yes Have you had these thoughts and had some intention of acting on them?: Yes Have you started to work out or worked out the details of how to kill yourself? Do you intend to carry out this plan?: Yes CSSRS3 Have you ever done anything, started to do anything or prepared to do anything to end your life?: Yes CSSRS4 Was this within the past three months?: Yes Screening Score Total Score: 8 Screening: Positive Mental Health Emergency Note Release [facility] release signed:: Yes Reason for Visit The client presented to the [facility] ED for chest pains. Upon arrival to the [facility] the client disclosed SI with a plan. 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 The client self-reports to have been hospitalized in the past too many times to count for his mental health. The client is supported by his therapist who he identifies as Flakito, his psychiatrist France Iraheta and [facility] staff. In the last 2 weeks has the pt presented for ES prior to today?: No Client Information Client is: New Well Housed: Yes Non Suicidal Self Injury Current: No Safety Risk/Harm to Self or Others Current Ideation to Harm Self or Others: Yes to self. Intent: yes, has intent. Plan: yes,has a plan. and to others. Intent: yes, has intent to harm others Plan: yes,has a plan. History of becoming violent with another person(any age): no history of violence with others. CALM/Risk Level Does risk to harm exist?: yes. Access to means: No. Risk: Low Risk Duty to warn indicated: No Asssessment/Mental Status Appearance: Poor hygiene Attitude: Friendly and Other (Uncooperative) Behavior: Unremarkable Speech: Normal Affect: Normal Mood: Sad, Depressed and Angry Thought process: Poverty of content Hallucinations: yes, (The client reports hearing demons in his head fighting to be heard and occasional visuals of his los. ) Visual and Auditory Delusions: No Attention: Unremarkable Perception: Not impaired Orientation: Fully orientated Memory: Intact Insight: Poor Judgement: Poor Neurovegetative Symptoms Sleep: Decrease Appetitie: No change Interests: Decrease Energy: Decrease Libido: Not applicable Additional Issues: Assaultive/Threatening Behavior: No Medical Concerns: No Client engaged in active self harm w/weapon: No Threatening to run away: No Child reported abuse/neglect: No Voluntarily presenting for services: Yes Domestic violence is a concern: No Extreme Psychosis or extreme behavior is present: No Impression The client is a 29-year-old single biological male who resides at [facility] in [place]. The client presents in a green hospital gown, black sweatpants and slippers laying his hospital bed in the ED of [facility]. Affect appears to be congruent with mood. Speech is in normal range. Client is friendly and uncooperative with this clinician; they report their mood as sad, angry and depressed. Thought process appears to be a poverty of content. There are no delusions observed. The client reports having visual and auditory hallucinations. The client reports hearing demons fight in his head to be heard and occasionally seeing his los. Cognitive assessment reveals orientation to person, place and time. The client presented to the [facility] ED for chest pains and disclosed SI with a plan upon triage. The client reports coming to the [facility] ED for chest pains, SI and HI. The client states he did not mention SI and HI until arriving because he felt no one would believe him. The client reports SI with a plan of going outside and freezing to and rates his intent a 10 out of 10. The client reports HI with a plan of punching, kicking and biting. The client does not have a specific person in mind but rates his intent a 10 out of 10. The client denies current NSSI. The client has no access to means within his home and is staffed 17/02. The client refused to engage in a safety plan or a follow up with emergency services. The client states it is pointless and a waste of everyone's time. The client states he sees his therapist on Wednesday 07/04. A intake could not be completed as the client's guardian was not present during the assessment. Plan/Disposition Recommended Disposition: Other (Discharge home with [facility] staff.). Plan: The client was discharged home with [facility] staff. Reports/communication Outcome discussed with: ED/Personnel
[2025-07-02 04:35] LABS: Lab Add On Test DONE
[2025-07-02 04:53] LABS: TSH (W/Ref FT4) 3.03 uIU/mL (0.55-4.78)
== END 2025-07-02 03:43 | disposition home or self-care (01) ==
PROVIDERS: Emergency Provider Student in an Organized Health Care Education/Training Program; PCP Nurse Practitioner Family
DX: R07.9 Chest pain, unspecified (principal); R45.851 Suicidal ideations
CPT/HCPCS: 99284; 99285; 96374; 36415; 00123; 80053; 87637; 93005; 96127; 71046; 83735; 84443; 84484; 85025; 93010; J1885